=== PATIENT | female | born 1995 | race Caucasian/White ===

== ENCOUNTER → 2022-10-23 12:04 | Outpatient (BNVA) | payer SELFPAY | PROVIDERS: Family Provider Nurse Practitioner Family; PCP Nurse Practitioner Family; Visit Provider Registered Nurse Neonatal Intensive Care | DX: R05.9 Cough, unspecified (principal); J06.9 Acute upper respiratory infection, unspecified | CPT/HCPCS: 87400 ==

== ENCOUNTER → 2023-12-31 14:05 | Outpatient (BNVA) | payer OTHER, SELFPAY | PROVIDERS: Family Provider Nurse Practitioner Family; PCP Nurse Practitioner Family; Visit Provider Nurse Practitioner Family | DX: Z02.1 Encounter for pre-employment examination (principal) | CPT/HCPCS: 80307 ==

== ENCOUNTER 2024-03-08 15:10 | Outpatient (CLI) | payer BC, MEDICAID, SELFPAY | END 2024-03-08 15:11 | disposition home or self-care (01) | PROVIDERS: Family Provider Nurse Practitioner Family; PCP Nurse Practitioner Family; Visit Provider Family Medicine | DX: O26.859 Spotting complicating pregnancy, unspecified trimester (principal); Z3A.00 Weeks of gestation of pregnancy not specified | CPT/HCPCS: 84702 ==

== ENCOUNTER 2024-09-22 10:34 | Inpatient (IN) | payer BC, MEDICAID, SELFPAY ==
[2024-09-22] VITALS (56 sets, daily range): BP systolic 127–189; BP diastolic 58–99; PULSE 62–98; RESP 17; TEMP 35.2–36.4; BMI 27.5
[2024-09-22 12:16] LABS: Basophils % 0.2 %; Eosinophils % 0.3 %; Hematocrit 38.3 % (36-47); Lymphocytes # 1.6 10^3/uL (0.8-4.8); Lymphocytes % 13.8 %; Mean Corpuscular HGB Conc 32.6 g/dL (30-55); Mean Corpuscular Hemoglobin 29.8 pg (27-33); Mean Corpuscular Volume 91.2 fl (85-98); Mean Platelet Volume 12.6 fL (7.4-10.4); Monocytes # 0.6 10^3/uL (0.2-0.9); Monocytes % 4.9 %; Neutrophils # 9.35 10^3/uL (1.8-7.7); Neutrophils % 80.3 %; Nucleated Red Blood Cells % 0 %; Platelet Count 214 10^3/cmm (157-399); Red Cell Distribution Width 13.9 % (12.1-15.1); White Blood Count 11.65 10^3/uL (3.29-11.43)
[2024-09-22] MEDS: miSOPROStol 100 mcg tablet 25 MCG SUBLINGUAL (13:49)
[2024-09-22] MEDS: fentaNYL 50 mcg/mL INJ 2mL IVP ×2 (15:16→16:21)
[2024-09-22] MEDS: ondansetron 2 mg/ML SDV 2 mL 4 MG IVP (16:27)
--- NOTE | 2024-09-22 17:48 | P.ANESASSM_ITS ---
Pre-Anesthetic Assessment Height/Weight: Height 1.6 m Weight 70.449 kg Temp Pulse Resp BP O2 Del Method 97.5 F L 80 17 157/81 Room Air 09/22/24 13:55 09/22/24 17:03 09/22/24 16:21 09/22/24 17:03 09/22/24 10:59 Preop Diagnosis: Active Labor Familial anesthetic complications: none Was Beta Lilli taken within 24 hours: N/A Was Clonidine taken within 24 hours: N/A Last intake: meal 1300 clears- current Social No alcohol and No tobacco Exam alert, oriented x 3, clear to auscultation bilaterally and regular rate & rhythm Airway Submandibular: within normal limits Cervical ROM: within normal limits Mallampati: Class II Dentition: full Pulmonary None reported CV/HEM None reported None reported Hepatic None reported GI Gastroesophageal Reflux Disease Metabolic None reported Musc/skel None reported Neuropsych None reported Anesthetic Plan ASA status: 2 Anesthesia: Eval. for regional block Other: epidural Medications/Allergies Home Medications Medication Instructions Recorded Confirmed Last Taken Type azithromycin 250 mg tablet See Rx Instructions PO .COMPLEX #6 10/18/22 10/23/22 Unknown Rx (Zithromax Z-Brad) tabs Allergies Allergy/AdvReac Type Severity Reaction Status Date / Time Sulfa (Sulfonamide Allergy Unknown Verified 10/23/22 11:17 Antibiotics) sulfamethoxazole Allergy Unknown Verified 10/23/22 11:17 [From Bactrim] trimethoprim [From Bactrim] Allergy Unknown Verified 10/23/22 11:17 Current Medications Generic Name Dose Route Start Last Admin Trade Name Freq PRN Reason Stop Dose Admin Fentanyl 25 - 100 mcg 09/22/24 10:59 09/22/24 16:21 Fentanyl 50 Mcg/Ml Inj 2ml IVP 50 mcg Q1H PRN Administration SEVERE PAIN Ondansetron HCl 4 mg 09/22/24 10:59 09/22/24 16:27 Ondansetron 2 Mg/Ml Sdv 2 Ml IVP 4 mg Q4H PRN Administration NAUSEA AND VOMITING PFSH Anesthesia Social History Smoking and tobacco/nicotine status: never used tobacco/nicotine Second hand smoke exposure: No Female Reproductive History : 1 Data Anesthesia 09/22/24 11:34 Short CBC 09/22/24 Range/Units 11:34 WBC 11.65 H (3.29-11.43) 10^3/uL Hgb 12.50 (11.27-16.99) g/dL Hct 38.3 (36-47) % MCV 91.2 (85-98) fl Plt Count 214 (157-399) 10^3/cmm Neut % (Auto) 80.3 % Neut # (Auto) 9.35 H (1.8-7.7) 10^3/uL Blood Bank 09/22/24 11:34 Blood Type A Positive Rho(D) Type Rh positive Antibody Screen Negative Cardiac Studies: 2 No Data to Display
--- NOTE | 2024-09-22 18:33 | ANES.PROC ---
Anesthesia Procedures Procedure/Date: 09/22/24 Epidural: Time Out Performed: Yes Consents Signed: Procedure Consent Consent: requested by attending/covering physician, from patient, risks and benefits reviewed and patient agrees to proceed Epidural position: sitting Epidural procedure: sterile prep of area, 1% lidocaine to numb the area, negative for paresthesia passed, test dose given, 1.5% xylocaine 1:200k epi (5ml), 0.2% Ropivacaine bolus ml (5), placed PCEA, no systemic response, sterile dressing applied, L.U.D. no apparent complications and 0.2% Ropiavacaine @ mls/hr (10) Additional Comments: CATHY at 7cm on second attempt. Catheter threaded to 13 cm 5ml test dose given no systemic response. patient reported adequate analgesia . 100 mcg Fentanyl given via epidural.
[2024-09-22] MEDS: ROPivacaine syringe 100 MG/50 ML SYRINGE 10 MG EPIDURAL (20:51)
[2024-09-23] VITALS (52 sets, daily range): BP systolic 120–178; BP diastolic 66–116; PULSE 77–118; RESP 14–16; TEMP 36.8–37.3; O2SAT 100; BMI 27.5
[2024-09-23] MEDS: ROPivacaine syringe 100 MG/50 ML SYRINGE 10 MG EPIDURAL ×2 (00:21→02:54)
[2024-09-23] MEDS: dextrose 5%-lactated ringers 1,000 ML 125 ML IV ×2 (02:52→11:01)
[2024-09-23] MEDS: oxytocin 30 UNIT/500 ML BAG IV ×2 (03:05→05:15)
[2024-09-23] MEDS: ondansetron 2 mg/ML SDV 2 mL 4 MG IVP (04:54)
--- NOTE | 2024-09-23 05:37 | PM.OPHPUD ---
Labor & Delivery H&P Update Date of Procedure: September 23, 2024 Date H&P Performed: 09/20/24 H&P update information: I have reviewed H&P completed within last 30 days and I have examined patient prior to procedure Changes to previous documentation: Spontaneous rupture of membrane Admission Diagnosis: 29-year-old 1 at 40 weeks estimated gestational age Preop diagnosis: Active Labor Planned procedure: Vaginal delivery Other information: The patient is a 40 weeks female who has had an unremarkable . She had spontaneous rupture membranes several hours prior to admission to the hospital. Otherwise her has been relatively unremarkable. Her labs have also been unremarkable. Her blood type is a positive. Her antibody screen was negative. Her drug screen was negative. She passed her glucose screen. She was GBS negative. The remainder of her infectious disease profile was within normal limits.
--- NOTE | 2024-09-23 06:28 | P.PN_ITS ---
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 She has made gradual progress since that time. Cytotec 25 mcg was placed. An epidural was placed. Later Pitocin was initiated. The baby did not tolerate Pitocin and it was shut off shortly thereafter. Later when she placed her on Pitocin again due to lengthening intervals between contractions. She progressed to 9 cm and was at 9 cm for about 4 to 5 hours. She then progressed to complete and pushed for 2 hours. She made minimal progress despite pushing for 2 hours. I discussed with the parents the options of a versus a vacuum. They elected to attempt a vacuum. After using a vacuum with 2 pushes, no discernible change in the position of the baby was noted. As result made the decision to proceed with a lower transverse section. Labor: Station: +2 Amniotic Membrane Status: Ruptured Monitor Mode: External Contraction Pattern: Irregular Vitals/I&O/Wt Last Vital Signs Temp 99.2 F 09/23/24 05:16 Pulse 97 09/23/24 06:25 Resp 17 09/22/24 16:21 BP 160/92 09/23/24 06:25 O2 Del Method Room Air 09/22/24 17:09 09/22/24 09/22/24 09/23/24 14:59 22:59 06:59 Intake Total 121.251 / 121.251 Output Total 450 / 450 Balance -328.749 / -328.749 Weight last 48 hrs Weight 155 lb 5 oz Physical Exam 2 Narrative: The patient is alert. She appears comfortable. Her heart has a regular rate and rhythm with no murmurs appreciated. Lungs are clear to auscultation bilaterally. Her fundus is firm and below the umbilicus. Urinary Catheter Management: Colindres: Cath Placed During This Visit: yes, but has since been removed by the nurse Reason for Continuing Indwelling Catheter: Decision to DC Catheter Urinary Catheter Date of Insertion: 09/22/24 Urinary Catheter Time of Insertion: 18:48 Date Urinary Catheter Removed: 09/23/24 Time Urinary Catheter Discontinued: 04:15 Data 09/22/24 11:34 A&P Assessment and plan (1) 40 weeks gestation of : (2) Failure to progress in labor: We will proceed with a section. We discussed the risks of the procedure including the risk of bleeding, infection, and damage to intra- abdominal organs. She and her significant other has no further questions and wishes to proceed. Attestations 2 Medical Necessity Statement*: I anticipate routine and post care. Coding Level of Care Code Acute Code for Chg Fwd Diagnoses 40 weeks gestation of Z3A.40 Failure to progress in labor O62.2
[2024-09-23] MEDS: lactated ringers 1,000 ML 999 ML IV (06:39)
[2024-09-23] MEDS: ceFAZolin 2,000 mg SDV 2000 MG IVP (06:45)
[2024-09-23] MEDS: citric acid-sodium citrate 30 mL UDC PO (06:46)
[2024-09-23] MEDS: famotidine 20 mg/2 mL INJ IVP (06:46)
[2024-09-23] MEDS: metoclopramide 5 mg/mL SDV 2 mL 10 MG IV (06:46)
[2024-09-23] MEDS: BUPivacaine 0.5% INJ 30 mL INJECTION (07:12)
--- NOTE | 2024-09-23 07:59 | PM.OP ---
Operative Report Date of procedure: September 23, 2024 Pre-op diagnosis: 29-year-old 1 at 40 weeks estimated gestational age with failure to progress Post-op diagnosis: Status post low-transverse section Procedure done: Low-transverse section Specimens removed/disposition: 1. Male with a weight of 5 pounds 12 ounces and Apgars of 7 and 8 2. Placenta with a three-vessel cord delivered intact Surgeon: Paolo Tran MD Estimated blood loss (mL): 600 Complications: None Procedure: The patient was brought back to the operating room where she was prepped and draped in usual sterile fashion including a vaginal prep. Anesthesia was found to be adequate. A lower transverse skin incision was then made with a #10 blade. I then dissected down to the underlying subcutaneous tissue until arriving at the prerectal fascia. The fascia was then nicked with the scalpel bilaterally. The fascial incisions were then carried laterally with Casas scissors. Attention was then turned to the superior aspect of the incision which was grasped with kochers and tented up away from the underlying rectus abdominis muscles. The muscles were then dissected away from the fascia manually, and later with Casas scissors. Attention was then turned to the inferior aspect of the incision, and the fascia was dissected away from the underlying muscle in similar fashion. The rectus abdominis muscles were then spread manually. The peritoneum was entered manually. Excellent visualization of the uterus was noted. A lower transverse uterine incision was then made with a #10 blade. Upon arriving at the intrauterine cavity, the uterine incision was then extended manually. The infant was noted to be in OP position. The baby's head was noted to be firmly applied to the pelvic floor. A nurse used a sterile glove to assist in pushing up the head to assist to my delivery. After delivery of the head, the mouth and nose were suctioned at the site of the incision. There was terminal meconium. There was no nuchal cord. The baby was then completely delivered and placed on the abdomen. The cord was cut and clamped. The baby was then handed to the waiting nurse. The placenta was removed intact. The uterus was externalized. The intrauterine cavity was cleansed of any remaining debris. The uterine incision was reapproximated in 2 layers. The first layer was performed with 0 Vicryl in a running locked stitch. The second layer was an imbricating stitch also using 0 Vicryl. The uterus was replaced into the abdomen. The peritoneum was then irrigated with warm saline. I reexamined the uterine incision and found it to be hemostatic. The rectus abdominis muscles were then reapproximated using 0 Vicryl in a running stitch. The fascia was then reapproximated using 0 Vicryl in running stitch. The subcutaneous tissue was then reapproximated using 0 Vicryl in a running stitch. The skin was reapproximated using suzi. A sterile dressing was placed. All counts were correct x2. Both the mother and baby were in stable condition.
[2024-09-23] MEDS: lanolin oint 7 gm 1 APPLIC TOPICAL (08:50)
[2024-09-23] MEDS: ketorolac 30 mg/mL INJ IVP (13:47)
[2024-09-23] MEDS: HYDROcodone-acetaminophen 5-325 mg Tablet PO ×2 (15:57→22:25)
[2024-09-23] MEDS: ferrous sulfate EC 325 mg Tablet PO (19:45)
[2024-09-23] MEDS: docusate sodium 100 mg Capsule PO (19:45)
[2024-09-23 19:46] LABS: Hematocrit 35.5 % (36-47); Mean Corpuscular HGB Conc 31.8 g/dL (30-55); Mean Corpuscular Hemoglobin 29.7 pg (27-33); Mean Corpuscular Volume 93.4 fl (85-98); Mean Platelet Volume 12.1 fL (7.4-10.4); Platelet Count 176 10^3/cmm (157-399); Red Cell Distribution Width 14.2 % (12.1-15.1)
[2024-09-23] MEDS: ibuprofen 800 mg tablet PO (21:30)
[2024-09-23] MEDS: simethicone 80 mg Chew PO (21:30)
[2024-09-24 03:24] VITALS: BP 117/69; PULSE 74
[2024-09-24 03:28] VITALS: RESP 18; TEMP 36.7
[2024-09-24] MEDS: HYDROcodone-acetaminophen 5-325 mg Tablet PO ×3 (07:31→18:29)
[2024-09-24] MEDS: ferrous sulfate EC 325 mg Tablet PO ×2 (07:32→21:05)
[2024-09-24] MEDS: docusate sodium 100 mg Capsule PO ×2 (08:55→18:29)
[2024-09-24] MEDS: PRENATAL VIT NO.130/IRON/FOLIC 1 EACH TABLET PO (08:55)
[2024-09-24] MEDS: ibuprofen 800 mg tablet PO ×3 (08:55→21:06)
--- NOTE | 2024-09-24 08:55 | PM.OBGYDC ---
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 SROM Hospital Course Hospital Course The patient presented to the hospital with spontaneous rupture membranes. She was placed on Cytotec 25 mcg. An epidural was placed. She was briefly placed on Pitocin, but the heart tones demonstrated deep decelerations, and it was stopped. She gradually progressed to complete. She pushed for 2 hours. A vacuum was attempted. We then proceeded to section which was unremarkable. Her postoperative course was unremarkable. She was passing gas, and advancing her diet on the day of her surgery. She ambulated well. She breast-fed well. Her pain was well-controlled. There were no concerns. Information Peripartum Data: Infant Delivery Method: Physical Exam Narrative: She is in no acute distress Lungs are clear auscultation bilaterally Her heart has a regular rate and rhythm Her fundus is below the umbilicus and firm Her dressing is clean, dry and intact Her extremities have trace edema Urinary Catheter Management: Colindres: Cath Placed During This Visit: yes, but has since been removed by the nurse Reason for Continuing Indwelling Catheter: Decision to DC Catheter Urinary Catheter Date of Insertion: 09/23/24 Urinary Catheter Time of Insertion: 06:30 Date Urinary Catheter Removed: 09/23/24 Time Urinary Catheter Discontinued: 17:00 Discharge Data Studies Completed and Pending Laboratory Results WBC 17.90 10^3/uL (3.29-11.43) H 09/23/24 19:30 RBC 3.80 10^6/uL (3.85-5.65) L 09/23/24 19:30 Hgb 11.30 g/dL (11.27-16.99) 09/23/24 19:30 Hct 35.5 % (36-47) L 09/23/24 19:30 MCV 93.4 fl (85-98) 09/23/24 19:30 MCH 29.7 pg (27-33) 09/23/24 19:30 MCHC 31.8 g/dL (30-55) 09/23/24 19:30 RDW 14.2 % (12.1-15.1) 09/23/24 19:30 Plt Count 176 10^3/cmm (157-399) 09/23/24 19:30 MPV 12.1 fL (7.4-10.4) H 09/23/24 19:30 Neut % (Auto) 80.3 % 09/22/24 11:34 Lymph % (Auto) 13.8 % 09/22/24 11:34 [place] % (Auto) 4.9 % 09/22/24 11:34 Eos % (Auto) 0.3 % 09/22/24 11:34 Baso % (Auto) 0.2 % 09/22/24 11:34 Neut # (Auto) 9.35 10^3/uL (1.8-7.7) H 09/22/24 11:34 Lymph # (Auto) 1.6 10^3/uL (0.8-4.8) 09/22/24 11:34 [place] # (Auto) 0.6 10^3/uL (0.2-0.9) 09/22/24 11:34 Eos # (Auto) 0.0 10^3/uL (0.0-0.8) 09/22/24 11:34 Baso # (Auto) 0.0 10^3/uL (0.0-0.1) 09/22/24 11:34 Nucleated RBC % (auto) 0 % 09/22/24 11:34 Nucleated RBCs # 0.0 /100WBC 09/22/24 11:34 Blood Type A Positive 09/22/24 11:34 Rho(D) Type Rh positive 09/22/24 11:34 Antibody Screen Negative 09/22/24 11:34 Vitals Last Vital Signs Temp 98.1 F 09/24/24 03:28 Pulse 74 09/24/24 03:24 Resp 18 09/24/24 03:28 BP 117/69 09/24/24 03:24 Pulse Ox 100 09/23/24 08:20 O2 Del Method Room Air 09/24/24 03:28 Results Labs OB ([facility]): Blood Type A Positive 09/22/24 Antibody Screen Negative 09/22/24 Hct 35.5 % (36-47) L 09/23/24 Hgb 11.30 g/dL (11.27-16.99) 09/23/24 Rho(D) Type Rh positive 09/22/24 Plt Count 176 10^3/cmm (157-399) 09/23/24 Ser , Semi-Qnt 63617.00 mIU/mL 03/08/24 Ur Barbiturates Screen Negative ng/mL (Negative) 12/31/23 Ur Phencyclidine Scrn Negative ng/mL (Negative) 12/31/23 Ur Amphetamines Screen Negative ng/mL (Negative) 12/31/23 U Benzodiazepines Scrn Negative ng/mL (Negative) 12/31/23 Urine Cocaine Screen Negative ng/mL (Negative) 12/31/23 U Marijuana (THC) Screen Negative ng/mL (Negative) 12/31/23 Discharge Plan Discharge Patient Disposition: Home Condition: Stable Prescriptions: New ibuprofen 800 mg Tablet 800 mg PO TID Qty: 45 0RF hydrocodone-acetaminophen 5-325 mg Tablet 1 tab PO Q6H PRN (Reason: Moderate To Severe Pain) Qty: 28 0RF Continued 400 mcg Tablet,Chewable 1 tab PO DAILY Discharge Orders: Discharge Order (Routine); Ordered 09/24/24 Ordered By: Paolo Tran Referrals: Paolo Tran MD [Physician] - 4-7 days (Please set up 6 week follow up as well.) Discharge Diet: Usual diet Discharge Activity: Limit activity as instructed Patient Instructions: Depression (DC), Opioid Safety (DC), Preeclampsia and Eclampsia After Delivery (GEN), Hemorrhage (DC), OB - Ankit, OB Discharge Report, OB Food/Drug Interaction Guide, OB Care at Home, Opioid Safety, Abnormal Bleeding Discharge Attestations [employer]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
--- NOTE | 2024-09-24 09:13 | ANE.PACU2 ---
Inpatient post-anesthesia follow up: Airway intact: Yes Vital signs: Temperature 98.1 F Pulse Rate 74 Respiratory Rate 18 Blood Pressure 117/69 Pulse Oximetry 100 Oxygen Delivery Me thod Room Air Oxygen Flow Rate Fraction of Inspir ed Oxygen Hydration adequate: Yes Nausea and vomiting: No Pain level: 1 Mental status: Baseline Epidural Start/End: Epidural Start Date: 09/22/24 Epidural Start Time: 17:52 Epidural End Date: 09/23/24 Epidural End Time: 10:39
[2024-09-24 16:00] VITALS: BP 121/76; PULSE 72; RESP 16; TEMP 36.9
[2024-09-24 21:00] VITALS: BP 126/77; PULSE 80; RESP 16; TEMP 36.6; O2SAT 99
== END 2024-09-24 21:15 | disposition home or self-care (01) | DRG 788 ==
LOC: OPOB 10:34 → OBGYN 18:42
PROVIDERS: Admitting Provider Family Medicine; PCP Nurse Practitioner Family; Visit Provider Family Medicine
PROC: 10D00Z1 Extraction of Products of Conception, Low, Open Approach (ICD-10-PCS; CPT 59514; principal; 2024-09-23 06:50)
DX: O76 Abnormality in fetal heart rate and rhythm complicating labor and delivery (principal); O77.0 Labor and delivery complicated by meconium in amniotic fluid; Z3A.40 40 weeks gestation of pregnancy; Z37.0 Single live birth; O62.2 Other uterine inertia
CPT/HCPCS: 36415; 51702; 59025; 59409; 85025; 85027; 86850; 86900; 98960; 99211; G0378; J0690; J1885; J2274; J2405; J2590; J2765; J2795; J3010; J3490; J7120; J7121

== ENCOUNTER 2024-09-30 23:52 | Emergency (ER) | payer BC, MEDICAID, SELFPAY ==
[2024-09-30 23:57] VITALS: BP 175/109; PULSE 86; RESP 20; TEMP 36.6; O2SAT 100; BMI 30.9
--- NOTE | 2024-10-01 00:35 | W.ED.RECABL ---
HPI - Recheck/Abnormal Lab/Rx General: Chief Complaint: Recheck/Abnormal Lab/Rx Stated Complaint: High BP Time Seen by Provider: 10/01/24 00:30 History of Present Illness: 29-year-old female who gave about 7 days ago. She reports emergency room with hypertension. She had been seen at a different emergency room and was given some medication she says but her pressures remained elevated so she was told to come here where she had delivered her baby. Says her chest feels funny and she feels slightly short of breath. She also has quite a bit of swelling in her legs. Related Data Home Medications Medication Instructions Recorded Confirmed vitamins no.144-folic 1 tab PO DAILY 09/23/24 09/23/24 acid 400 mcg chewable tablet () Previous Rx's Medication Instructions Recorded hydrocodone 5 mg-acetaminophen 325 1 tab PO Q6H PRN Moderate To 09/24/24 mg tablet Severe Pain #28 tabs ibuprofen 800 mg tablet 800 mg PO TID #45 tabs 09/24/24 cefdinir 300 mg capsule 300 mg PO BID 7 days #14 caps 10/01/24 Allergies Allergy/AdvReac Type Severity Reaction Status Date / Time Sulfa (Sulfonamide Allergy Unknown Verified 10/23/22 11:17 Antibiotics) sulfamethoxazole Allergy Unknown Verified 10/23/22 11:17 [From Bactrim] trimethoprim [From Bactrim] Allergy Unknown Verified 10/23/22 11:17 Review of Systems Narrative: Constitutional symptoms: Negative except as documented in HPI. Skin symptoms: Negative except as documented in HPI. Eye symptoms: Negative except as documented in HPI. ENMT symptoms: Negative except as documented in HPI. Respiratory symptoms: Negative except as documented in HPI. Cardiovascular symptoms: Negative except as documented in HPI. Gastrointestinal symptoms: Negative except as documented in HPI. Genitourinary symptoms: Negative except as documented in HPI. Musculoskeletal symptoms: Negative except as documented in HPI. Neurologic symptoms: Negative except as documented in HPI. Psychiatric symptoms: Negative except as documented in HPI. Endocrine symptoms: Negative except as documented in HPI. PFSH ED PFSH: Social History Smoking and tobacco/nicotine status: never used tobacco/nicotine Second hand smoke exposure: No Physical Exam Narrative: EXAM NARRATIVE: General: Alert, no acute distress. Skin: Warm, dry. Head: Normocephalic, atraumatic. Neck: Supple, trachea midline. Eye: Extraocular movements are intact. Ears, nose, mouth and throat: mucosa moist. Cardiovascular: Regular, Normal peripheral perfusion. 2-3+ tibial pitting edema. Respiratory: Lungs are clear to auscultation, respirations are non-labored, breath sounds are equal, Symmetrical chest wall expansion. Gastrointestinal: Soft, Nontender, Non distended Musculoskeletal: Normal ROM, no deformity. Neurological: Alert and oriented, No focal neurological deficit observed. Psychiatric: Cooperative, appropriate mood & affect. Course Vital Signs: Vital signs: Vital Signs Temperature 98 F 09/30/24 23:57 Pulse Rate 71 10/01/24 00:52 Respiratory Rate 12 10/01/24 00:52 Blood Pressure 129/88 10/01/24 01:43 Pulse Oximetry 100 10/01/24 00:52 Oxygen Delivery Me thod Room Air 10/01/24 00:52 MDM - Recheck/Abnormal Lab/Rx Medical Decision Making Medical decision making: Differential diagnosis including but not limited to and based on the above HPI, review of systems and physical exam: Patient presents with hypertension: Essential hypertension. Stroke. acute coronary syndrome. kidney failure. congestive heart failure. anxiety Orders placed to evaluate differential diagnosis based on the above differential, HPI and physical exam EKG: Time 1247. Rate 65. Normal sinus rhythm, No ST-T changes, no ectopy, normal OR & QRS intervals, This was reviewed and interpreted by myself the ER physician at 12:50 AM Chest x-ray: No acute process. No infiltrate. No pneumothorax. This was reviewed and interpreted by myself the emergency room physician. I also reviewed the radiology report. Lab Review: Laboratory results were reviewed and interpreted by myself the emergency room physician. No leukocytosis. Hemoglobin is 11.6. BUN/creatinine are normal at fourteen 0.5. Troponin is negative I reviewed the patient's medical record. Reexamination: Patient remained stable. No increased work of breathing. No altered mental status. No focal motor deficits. Consultation: Spoke with Dr. Tran who had delivered a baby. Patient says she has an appointment there in his clinic this morning. Blood pressures come down spontaneously. He agrees with treating the urinary tract infection see if that does not help with her blood pressure. Assessment and plan: hypertension Urinary tract infection ? IV Rocephin in the emergency room - Discharged home - Discussed plan with patient. Answered any questions. - Evaluation and treatment of this problem were appropriate in the emergency setting. Lab Data 10/01/24 00:39 12 00:39 Laboratory Results WBC 9.76 10^3/uL (3.29-11.43) 10/01/24 00:39 RBC 3.90 10^6/uL (3.85-5.65) 10/01/24 00:39 Hgb 11.60 g/dL (11.27-16.99) 10/01/24 00:39 Hct 35.8 % (36-47) L 10/01/24 00:39 MCV 91.8 fl (85-98) 10/01/24 00:39 MCH 29.7 pg (27-33) 10/01/24 00:39 MCHC 32.4 g/dL (30-55) 10/01/24 00:39 RDW 13.5 % (12.1-15.1) 10/01/24 00:39 Plt Count 411 10^3/cmm (157-399) H 10/01/24 00:39 MPV 8.9 fL (7.4-10.4) 10/01/24 00:39 Neut % (Auto) 68.2 % 10/01/24 00:39 Lymph % (Auto) 19.2 % 10/01/24 00:39 [place] % (Auto) 7.4 % 10/01/24 00:39 Eos % (Auto) 3.0 % 10/01/24 00:39 Baso % (Auto) 0.4 % 10/01/24 00:39 Neut # (Auto) 6.66 10^3/uL (1.8-7.7) 10/01/24 00:39 Lymph # (Auto) 1.9 10^3/uL (0.8-4.8) 10/01/24 00:39 [place] # (Auto) 0.7 10^3/uL (0.2-0.9) 10/01/24 00:39 Eos # (Auto) 0.3 10^3/uL (0.0-0.8) 10/01/24 00:39 Baso # (Auto) 0.0 10^3/uL (0.0-0.1) 10/01/24 00:39 Nucleated RBC % (auto) 0 % 10/01/24 00:39 Nucleated RBCs # 0.0 /100WBC 10/01/24 00:39 Sodium 138 mmol/L (136-145) 10/01/24 00:39 Potassium 4.0 mmol/L (3.5-5.1) 10/01/24 00:39 Chloride 103 mmol/L (98-107) 10/01/24 00:39 Carbon Dioxide 22 mmol/L (22-29) 10/01/24 00:39 Anion Gap 17.0 (5-19) 10/01/24 00:39 BUN 14 mg/dL (6-20) 10/01/24 00:39 Creatinine 0.5 mg/dL (0.5-0.9) 10/01/24 00:39 GFR Calculation 145.9 mL/min (90-130) H 10/01/24 00:39 Glucose 98 mg/dL (65-115) 10/01/24 00:39 Calculated Osmolality 286 mOsm/kg (285-295) 10/01/24 00:39 Calcium 9.3 mg/dL (8.5-10.5) 10/01/24 00:39 Total Bilirubin 0.2 mg/dL (0.15-1.2) 10/01/24 00:39 AST 21 U/L (0-32) 10/01/24 00:39 ALT 26 U/L (0-33) 10/01/24 00:39 Alkaline Phosphatase 116 U/L (35-105) H 10/01/24 00:39 Troponin T Baseline < 6 ng/L (0-10) 10/01/24 00:39 NT-Pro-B Natriuret Pep 219 pg/mL (0-125) H 10/01/24 00:39 Total Protein 6.9 g/dL (6.6-8.7) 10/01/24 00:39 Albumin 3.7 g/dL (3.5-5.2) 10/01/24 00:39 Globulin 3.2 g/dL (1.3-4.6) 10/01/24 00:39 Urine Color Yellow (Yellow) 10/01/24 01:30 Urine Appearance Slightly cloudy (CLEAR) 10/01/24 01:30 Urine pH 5.5 (5-7) 10/01/24 01:30 Ur Specific [place] 1.020 (1.005-1.030) 10/01/24 01:30 Urine Protein Trace (Negative) A 10/01/24 01:30 Urine Glucose (UA) Negative (Normal) 10/01/24 01:30 Urine Ketones Negative (Negative) 10/01/24 01:30 Urine Blood 3+ (Negative) A 10/01/24 01:30 Urine Nitrate Negative (Negative) 10/01/24 01:30 Urine Bilirubin Negative (Negative) 10/01/24 01:30 Urine Urobilinogen 0.2 mg/dL (Negative) 10/01/24 01:30 Ur Leukocyte Esterase 2+ (Negative) A 10/01/24 01:30 Urine RBC 0-2 /hpf (0-2) 10/01/24 01:30 Urine WBC 51-100 /hpf (0-5) H 10/01/24 01:30 Ur Squamous Epith Cells 0-5 /hpf (0-5) 10/01/24 01:30 Amorphous Sediment Not Reportable 10/01/24 01:30 Urine Bacteria Trace /hpf (NONE) 10/01/24 01:30 Hyaline Casts 0-4 /lpf H 10/01/24 01:30 U Random Total Protein 16 mg/dL 10/01/24 01:30 Urine Creatinine 99 mg/dL (28-217) 10/01/24 01:30 Protein/Creatinin Ratio 0.16 mg/mg CR 10/01/24 01:30 XR interpretation done by ED provider, pending radiology final review Discharge Plan Discharge Patient Disposition: Home Clinical Impression: Urinary tract infection, Edema, hypertension Condition: Stable Prescriptions: New cefdinir 300 mg capsule 300 mg PO BID 7 Days Qty: 14 0RF No Action 400 mcg Tablet,Chewable 1 tab PO DAILY ibuprofen 800 mg Tablet 800 mg PO TID Qty: 45 0RF hydrocodone-acetaminophen 5-325 mg Tablet 1 tab PO Q6H PRN (Reason: Moderate To Severe Pain) Qty: 28 0RF Discharge Orders: Discharge ED (Routine); Ordered 10/01/24 Ordered By: Juana Mabry Referrals: Fe Nolasco FNP [Primary Care Provider] - Discharge Diet: Usual diet Discharge Activity: Increase activity as tolerated Patient Instructions: Urinary Tract Infection in Women (ED), Opioid Safety, Pain Management Activity Restrictions/Additional Instructions: Keep your follow-up with Dr. Tran. If your blood pressure stays consistently elevated above 160 or 170 return to the emergency room. Thank you for choosing [facility] for your healthcare needs today. Please realize this is an emergency room and that we are providing you with a medical screening exam and this may not be complete and all inclusive of all the testing and or work up that you may need to determine your ailment or severity of your illness. You have been screened and evaluated and felt safe for discharge. Health conditions do change or evolve sometimes and as such it is important that you follow up with your Primary Doctor to be re checked, 3-5 days is a general good time frame for follow up. You are always welcome to return to the ED for re assessment if your symptoms are worsening or you have new concerns Coding Level of Care Code ED Elevator Operator for Favio Vázquez
[2024-10-01 00:43] LABS: Basophils % 0.4 %; Eosinophils # 0.3 10^3/uL (0.0-0.8); Hematocrit 35.8 % (36-47); Lymphocytes # 1.9 10^3/uL (0.8-4.8); Lymphocytes % 19.2 %; Mean Corpuscular HGB Conc 32.4 g/dL (30-55); Mean Corpuscular Hemoglobin 29.7 pg (27-33); Mean Corpuscular Volume 91.8 fl (85-98); Mean Platelet Volume 8.9 fL (7.4-10.4); Monocytes # 0.7 10^3/uL (0.2-0.9); Monocytes % 7.4 %; Neutrophils # 6.66 10^3/uL (1.8-7.7); Neutrophils % 68.2 %; Nucleated Red Blood Cells % 0 %; Platelet Count 411 10^3/cmm (157-399); Red Cell Distribution Width 13.5 % (12.1-15.1); White Blood Count 9.76 10^3/uL (3.29-11.43)
--- NOTE | 2024-10-01 00:47 | ECG_ITS ---
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 Measurements Intervals [place] Rate: 65 P: 44 ID: [id number] QRS: 63 QRSD: 89 T: 49 QT: 381 QTc: 398 Interpretive Statements SINUS RHYTHM WITH SINUS ARRHYTHMIA WITH SHORT ID INTERVAL No previous ECG available for comparison Electronically Signed On 10-01-2024 16:53:17 CORRECTIONAL COOK by Ramos Nation M.D. [email or web address]
[2024-10-01 00:52] VITALS: BP 166/93; PULSE 71; RESP 12; O2SAT 100
[2024-10-01 01:03] LABS: Troponin(5th) Baseline < 6 ng/L (0-10)
[2024-10-01 01:04] LABS: Alanine Aminotransferase 26 U/L (0-33); Albumin Level 3.7 g/dL (3.5-5.2); Alkaline Phosphatase 116 U/L (35-105); Aspartate Amino Transferase 21 U/L (0-32); Blood Urea Nitrogen 14 mg/dL (6-20); Calcium 9.3 mg/dL (8.5-10.5); Carbon Dioxide 22 mmol/L (22-29); Chloride 103 mmol/L (98-107); Creatinine Clr Calc Pharmacy 165.6147; Globulin 3.2 g/dL (1.3-4.6); Glomerular Filtration Rate 145.9 mL/min (90-130); Glucose 98 mg/dL (65-115); Osmolality Calculated 286 mOsm/kg (285-295); Sodium 138 mmol/L (136-145); Total Bilirubin 0.2 mg/dL (0.15-1.2); Total Protein 6.9 g/dL (6.6-8.7)
[2024-10-01 01:12] LABS: NT Pro B Type Natriuretic Pept 219 pg/mL (0-125)
--- NOTE | 2024-10-01 01:13 | XRR_ITS ---
PROCEDURE INFORMATION: Exam: XR Chest Exam date and time: 10/01/2024 1:40 AM Age: 29 years old Clinical indication: Shortness of breath TECHNIQUE: Imaging protocol: Radiologic exam of the chest. Views: 1 view. COMPARISON: No relevant prior studies available. FINDINGS: Lungs: Unremarkable. No consolidation. Pleural spaces: Unremarkable. No pleural effusion. No pneumothorax. Heart/Mediastinum: Unremarkable. No cardiomegaly. Bones/joints: Nonspecific sclerotic densities project over the shoulders. This is benign appearance. Possibly osteopoikilosis. XR/XR chest 1V portable 40021 IMPRESSION: No acute findings.
[2024-10-01 01:43] VITALS: BP 129/88
[2024-10-01 01:44] LABS: Bacteria Urine Trace /hpf; Hyaline Casts Urine 0-4 /lpf; RBC Urine 0-2 /hpf (0-2); Squamous Epithelial Cell Urine 0-5 /hpf (0-5); WBC Urine 51-100 /hpf (0-5)
[2024-10-01 01:50] LABS: Add Urine Microscopic? YES; Bilirubin Urine Negative (Negative); Blood Urine 3+ (Negative); Glucose Urine UA Negative (Normal); Ketones Urine Negative (Negative); Leukocyte Esterase Urine 2+ (Negative); Nitrate Urine Negative (Negative); Protein Urine Trace (Negative); Urine Appearance Slightly Cloudy (CLEAR); Urine Color Yellow (Yellow); Urobilinogen Urine 0.2 mg/dL (Negative); pH Urine 5.5 (5-7)
[2024-10-01 01:51] LABS: Add Urine Culture? Yes
[2024-10-01 01:54] LABS: Urine Creatinine 99 mg/dL (28-217); Urine Protein Random 16 mg/dL
[2024-10-01 01:57] LABS: UPRO/UCREAT Ratio 0.16 mg/mg CR
[2024-10-01] MEDS: cefTRIAXone 1,000 mg SDV 1000 MG IVP (02:39)
[2024-10-01 03:28] VITALS: BP 150/90; PULSE 96; RESP 20; O2SAT 100
== END 2024-10-01 03:31 | disposition home or self-care (01) ==
PROVIDERS: Physician Assistant; Emergency Provider Emergency Medicine; PCP Nurse Practitioner Family
DX: N39.0 Urinary tract infection, site not specified (principal); R60.9 Edema, unspecified; O16.5 Unspecified maternal hypertension, complicating the puerperium
CPT/HCPCS: 36415; 71045; 80053; 81001; 82570; 83880; 84156; 84484; 85025; 87086; 93005; 96374; 99285; J0696